=== PATIENT | male | born 2000 | race Caucasian/White ===

== ENCOUNTER 2019-07-18 16:33 | Emergency (ER) | payer OTHER ==
--- NOTE | 2019-07-18 17:08 | RAD ---
EXAM: XR Wrist 3 Rt View STANDARD PROVIDED CLINICAL HISTORY: Pain FINDINGS: There is no evidence for fracture or other acute osseous abnormality. Alignment appears anatomic. Ruma nt spaces appear preserved. IMPRESSION: No evidence for an acute osseous abnormality. If there is persistent clinical concern, conservative m anagement and follow-up imaging advised.
== END 2019-07-18 17:27 | disposition home or self-care (01) ==
LOC: NAV ERS 16:33
DX: S63.501A Unspecified sprain of right wrist, initial encounter (principal); W22.8XXA Striking against or struck by other objects, initial encounter; Y93.71 Activity, boxing